=== PATIENT | male | born 1995 | race Caucasian/White ===

== ENCOUNTER 2016-06-12 17:36 | Emergency (ER) | payer OTHER ==
[~2016-06-12 17:36] MED LIST: DIAZ5TAB4 PO; PHEN97.2 PO; PHENOBARBITAL
[2016-06-12] MEDS ORDERED: ONDANSETRON 2MG/ML, 2ML ONE ×2 (17:54→18:52)
[2016-06-12] MEDS ORDERED: SODIUM CHLORIDE 0.9% 1,000ML IVBOLUS ONE (18:00)
[2016-06-12] MEDS ORDERED: ONDANSETRON 2MG/ML, 2ML IVPush ONE ×2 (18:00→19:00)
[2016-06-12 18:17] LABS: ASPARTATE AMINO TRANSFERASE 30 U/L (15-37); BLOOD UREA NITROGEN 16 mg/dL (7-18)
[2016-06-12 18:26] LABS: ACETAMINOPHEN < 2 mcg/mL (10-30)
[2016-06-12 18:34] LABS: DAU SCREEN DISCLAIMER
[2016-06-12] MEDS ORDERED: PLEASE ENTER HEIGHT AND WEIGHT MC SCH (19:00)
[2016-06-12 20:11] VITALS: BP 127/74
== END 2016-06-12 21:56 | disposition home or self-care (01) ==
LOC: ED 18:19
DX: R40.0 Somnolence (principal); T40.2X1A Poisoning by other opioids, accidental (unintentional), initial encounter; R11.2 Nausea with vomiting, unspecified; F11.20 Opioid dependence, uncomplicated; Y92.89 Other specified places as the place of occurrence of the external cause
CPT/HCPCS: 36415; 71010; 80053; 80307; 80329; 83690; 85025; 93005; 96361; 96374; 99285; J2405; J7030; G0480

== ENCOUNTER 2016-10-21 18:18 | Emergency (ER) | payer OTHER ==
[~2016-10-21] VITALS: Ht 180.3 cm; Wt 94.6 kg
[2016-10-21 18:30] VITALS: BP 146/84
== END 2016-10-21 19:28 | disposition left against medical advice (07) ==
LOC: ED 19:22
DX: R56.9 Unspecified convulsions (principal); Z53.21 Procedure and treatment not carried out due to patient leaving prior to being seen by health care provider

== ENCOUNTER 2020-05-08 22:36 | Emergency (ER) | payer OTHER ==
[~2020-05-08] VITALS: Ht 185.4 cm; Wt 103.4 kg
[~2020-05-08 22:36] MED LIST changes: +LAMO150T3 PO
[2020-05-08] MEDS ORDERED: MIDAZOLAM 1 MG/ML, 2ML ONE (22:39)
[2020-05-08 23:10] LABS: ALANINE AMINOTRANSFERASE 76 U/L (12-78); ALBUMIN 4.3 g/dL (3.4-5.0); ANION GAP 13 mmol/L (5-15); CALCIUM 9.8 mg/dL (8.5-10.1); CHLORIDE 102 mmol/L (98-107); SALICYLATE LEVEL 2.3 mg/dL (2.8-20.0)
[2020-05-08 23:11] LABS: BASOPHILS % (AUTO) 0 % (0-1); EOSINOPHILS % (AUTO) 0 % (1-7); LYMPHOCYTES % (AUTO) 13 % (22-44); MEAN CORPUSCULAR HEMOGLOBIN 31.1 pg (27.5-34.5); MEAN CORPUSCULAR HGB CONC 34.2 g/dL (33.2-36.2); MEAN PLATELET VOLUME 8.3 fL (7.4-10.4); MONOCYTES % (AUTO) 5 % (2-9); NEUTROPHILS % (AUTO) 82 % (42-75); PLATELET COUNT 292 x10^3/uL (130-400); RED BLOOD COUNT 5.42 x10^6/uL (4.38-5.82); RED CELL DISTRIBUTION WIDTH 12.7 % (9.4-14.8)
[2020-05-08 23:12] LABS: ALKALINE PHOSPHATASE 80 U/L (45-117); BILIRUBIN,TOTAL 0.9 mg/dL (0.2-1.0); CREATININE 1.57 mg/dL (0.7-1.3); TOTAL PROTEIN 8.6 g/dL (6.4-8.2)
[2020-05-08 23:30] LABS: MD NO
--- NOTE | 2020-05-08 23:35 | NUR ---
PATIENT TAKEN TO CT, TOLERATED POORLY. PT WOULD NOT REPSOND TO SIMPLE ONE STEP COMMANDS, COMBATIVE, AND NON-COOPERATIVE. REQUIRED TO GIVEN VERSED FOR PROPER SEDATION FOR PATIENT AND STAFF SAFETY.
--- NOTE | 2020-05-08 23:45 | NUR ---
PATIENT RETURNED FROM CT. VITAL SIGNS STABLE. WILL CONTINUE TO MONITOR.
[2020-05-08] MEDS ORDERED: NEOSPORIN OINT. PKT 1 PACKET ONE (23:51)
--- NOTE | 2020-05-09 00:09 | NUR ---
PATIENT RESTING IN BED, NO NOTED ACUTE DISTRESS. VITAL SIGNS STABLE. WILL CONTINUE TO MONITOR.
--- NOTE | 2020-05-09 00:48 | NUR ---
PATIENT ALERT AND ORIENTED, SLIGHTLY AGITATED. REQUESTED WATER, EXPLAINED TO PATIENT THAT WATER WILL BE A WAIT AND RE-EVALUATE. PATIENT HAS NOT BEEN ORIENTED LONG, AND IS AT RISK FOR ASPIRATION. WILL CONTINUE TO MONITOR.
[2020-05-09] MEDS ORDERED: MIDAZOLAM 1 MG/ML, 2ML IVPush ONE (01:00)
[2020-05-09] MEDS ORDERED: ONDANSETRON 2MG/ML, 2ML ONE (01:12)
--- NOTE | 2020-05-09 01:16 | NUR ---
PATIENT VOMITED ON FLOOR, ZOFRAN GIVEN.
--- NOTE | 2020-05-09 01:32 | NUR ---
PATIENT RESTING IN BED, VSS. NO NOTED ACUTE DISTRESS. PATIENT TOLERATING INTERVENTIONS WELL.
[2020-05-09] MEDS ORDERED: LAMOTRIGINE 100 MG TABLET PO ONE (02:00)
--- NOTE | 2020-05-09 02:00 | NUR ---
PATIENT GIVEN PO FLUIDS. TOLERATING WELL. UPDATED ON PLAN OF CARE. NONOTED ACUTE DISTRESS. PT VITAL SIGNS STABLE. WILL CONTINUE TO MONITOR.
[2020-05-09 02:38] VITALS: BP 184/60
--- NOTE | 2020-05-09 02:51 | NUR ---
PATIENT CLEARED FOR DISCHARGE. PATIENT ABLE TO TOLERATE PO MEDICATIONS. PATIENT VERBALZIED UNDERSTANDING OF SELF CARE AND FOLLOW UP CARE AT HOME. PT'S DISCHARGE PAPERWORK GIVEN TO PD. PT'S VSS, NO ACUTE DISTRESS. TAKEN IN CUSTODY WITH PD VIA WHEELCHAIR.
== END 2020-05-09 02:53 | disposition home or self-care (01) ==
LOC: ED 05-09 00:35
DX: G40.909 Epilepsy, unspecified, not intractable, without status epilepticus (principal); S00.83XA Contusion of other part of head, initial encounter; R41.82 Altered mental status, unspecified; R00.0 Tachycardia, unspecified; X58.XXXA Exposure to other specified factors, initial encounter; Y93.89 Activity, other specified; Y92.89 Other specified places as the place of occurrence of the external cause; Y99.8 Other external cause status
CPT/HCPCS: 36415; 70450; 71045; 80053; 80299; 80320; 85025; 93005; 96374; 99285; J2250; 80329; G0480